=== PATIENT | male | born 1950 | race Caucasian/White ===

== ENCOUNTER 2022-12-05 11:43 | Inpatient (IN) | payer MEDICAID ==
[~2022-12-05] VITALS: Ht 167.6 cm; Wt 77.6 kg
[2022-12-05 12:24] LABS: APPEARANCE,URINE CLEAR (CLEAR); BILIRUBIN,URINE NEGATIVE (NEGATIVE); BLOOD, URINE TRACE-INTA Ery/uL (NEGATIVE); COLOR,URINE YELLOW (YELLOW); KETONES,URINE NEGATIVE (NEGATIVE); LEUKOCYTE ESTERASE ,URINE NEGATIVE (NEGATIVE); NITRITE, URINE NEGATIVE (NEGATIVE); PH,URINE 7.5 (5.0-8.0); PROTEIN,URINE 3+ mg/dl (NEGATIVE); UGLUCOSE NEGATIVE (NEGATIVE); UROBILINOGEN,URINE 0.2 EU/dL (0.2)
[2022-12-05 12:26] LABS: BASOPHILS % (AUTO) 0.7 % (0.0-2.0); EOSINOPHILS % (AUTO) 0.4 % (0.0-6.0); HEMATOCRIT 32 % (39-51); HEMOGLOBIN 10.3 g/dL (13.5-17.5); LYMPHOCYTES # (AUTO) 0.3 K/uL (0.8-4.8); LYMPHOCYTES % (AUTO) 10.3 % (20.0-44.0); MEAN CORPUSCULAR HEMOGLOBIN 23 PG (26.0-33.0); MEAN CORPUSCULAR HGB CONC 32 g/dl (31.0-36.0); MEAN CORPUSCULAR VOLUME 71 fL (80-96); MONOCYTES # (AUTO) 0.7 K/uL (0.1-1.30); MONOCYTES % (AUTO) 26.6 % (2.0-12.0); NEUTROPHILS # (AUTO) 1.5 K/uL (1.8-8.9); RED BLOOD CELL COUNT(AUTO) 4.52 MIL/uL (4.5-6.0); RED CELL DISTRIBUTION WIDTH 15.4 % (11.5-15.0); WHITE BLOOD COUNT (AUTO) 2.5 K/uL (4.3-11.0)
[2022-12-05 12:50] LABS: CALCIUM, SERUM 8.7 mg/dL (8.5-10.1); CARBON DIOXIDE 27 mmol/L (21-32); CHLORIDE 102 mmol/L (98-107); CREATININE 1.8 mg/dL (0.6-1.3); GLUCOSE 152 mg/dL (74-106); SODIUM SERUM 139 mmol/L (136-145); UREA NITROGEN, BLOOD 21 mg/dL (7-18)
[2022-12-05 12:53] LABS: POTASSIUM 2.6 mmol/L (3.5-5.1)
[2022-12-05 12:54] LABS: LACTIC ACID 0.7 mmol/L (0.4-2.0)
[2022-12-05 12:57] LABS: ALANINE AMINOTRANSFERASE 17 U/L (12-78); ALBUMIN 3.5 g/dL (3.4-5.0); ALKALINE PHOSPHATASE 51 U/L (46-116); ASPARTATE AMINOTRANSFERASE 14 U/L (15-37); BILIRUBIN,DIRECT 0.2 mg/dL (0.0-0.2); BILIRUBIN,TOTAL 1.2 mg/dL (0.2-1.0); TOTAL PROTEIN, SERUM 7.3 g/dL (6.4-8.2)
[2022-12-05 13:03] LABS: ADD URINE CULTURE NO; BACTERIA,URINE Few /HPF (None Seen); RBC,URINE 0-2 /HPF (0-2); SQUAMOUS EPITHELIAL CELL,UR Rare /HPF (None Seen); WBC,URINE 0-2 /HPF (0-3)
[2022-12-05 13:10] LABS: PLATELET COUNT (AUTO) 43 K/uL (150-450)
[2022-12-05] MEDS ORDERED: POTASSIUM CHLORIDE 20 MEQ TAB.PRT.SR PO ONE ×2 (13:24→13:30)
[2022-12-05] MEDS ORDERED: POTASSIUM CL. PREMIX PERIPHER. 200 ML ONE (13:24)
[2022-12-05] MEDS ORDERED: TAMS-12 PO (13:31)
[2022-12-05] MEDS ORDERED: ERGO500040 PO (13:31)
[2022-12-05] MEDS ORDERED: HYDR-4075 PO (13:31)
[2022-12-05] MEDS ORDERED: FERR325T23 PO (13:31)
[2022-12-05] MEDS ORDERED: POTA10CA43 PO (13:31)
[2022-12-05] MEDS: POTASSIUM CL. PREMIX PERIPHER. 50 ML IV SCH ×4 (13:45→17:06)
[2022-12-05] MEDS ORDERED: ACETAMINOPHEN 325 MG TABLET PO PRN (14:00)
[2022-12-05] MEDS ORDERED: ONDANSETRON HCL/PF 4 MG/2 ML VIAL IVP PRN (14:00)
[2022-12-05] MEDS ORDERED: MAG HYDROX/AL HYDROX/SIMETH 30 ML UDC PO PRN (14:00)
[2022-12-05 14:13] LABS: BAND % (MANUAL) 1 % (0.0-5.0); EOSINOPHILS % (MANUAL) 3 % (0-4); LYMPHOCYTES % (MANUAL) 10 % (16-48); MONOCYTES % (MANUAL) 27 % (0-11.0); NEUTROPHILS % (MANUAL) 59 (42-76); PLATELET ESTIMATE DECREASED
[2022-12-05 14:14] LABS: ANISOCYTOSIS 1+
[2022-12-05 14:15] LABS: OVALOCYTES 1+
[2022-12-05 15:05] LABS: MAGNESIUM 1.9 mg/dL (1.8-2.4); PHOSPHORUS 2.4 mg/dL (2.5-4.9)
[2022-12-05] MEDS: IV NS 0.9% 1,000 ML IV PRN (15:28)
[2022-12-06] VITALS: BP 158/97; TEMP 102.6; O2SAT 94
[2022-12-06] MEDS: IV NS 0.9% 1,000 ML IV PRN (07:03)
[2022-12-06 07:44] LABS: BASOPHILS % (AUTO) 0.7 % (0.0-2.0); EOSINOPHILS % (AUTO) 0.2 % (0.0-6.0); HEMATOCRIT 32 % (39-51); LYMPHOCYTES # (AUTO) 0.6 K/uL (0.8-4.8); LYMPHOCYTES % (AUTO) 29.5 % (20.0-44.0); MEAN CORPUSCULAR HEMOGLOBIN 23 PG (26.0-33.0); MEAN CORPUSCULAR HGB CONC 32 g/dl (31.0-36.0); MEAN CORPUSCULAR VOLUME 72 fL (80-96); MONOCYTES # (AUTO) 0.9 K/uL (0.1-1.30); MONOCYTES % (AUTO) 40.7 % (2.0-12.0); NEUTROPHILS # (AUTO) 0.6 K/uL (1.8-8.9); NEUTROPHILS % (AUTO) 28.9 % (43.0-81.0); RED BLOOD CELL COUNT(AUTO) 4.38 MIL/uL (4.5-6.0); RED CELL DISTRIBUTION WIDTH 15.7 % (11.5-15.0); WHITE BLOOD COUNT (AUTO) 2.2 K/uL (4.3-11.0)
[2022-12-06 07:56] LABS: PLATELET COUNT (AUTO) 34 K/uL (150-450)
[2022-12-06 08:00] VITALS: BP 163/78; TEMP 98.8; O2SAT 97
[2022-12-06 08:03] LABS: CALCIUM, SERUM 7.9 mg/dL (8.5-10.1); PHOSPHORUS 3.5 mg/dL (2.5-4.9)
[2022-12-06] MEDS ORDERED: ERGOCALCIFEROL (VITAMIN D 2) 50,000 UNIT CAPSULE PO SCH (10:30)
[2022-12-06 10:51] LABS: ANISOCYTOSIS 1+; BAND % (MANUAL) 1 % (0.0-5.0); LYMPHOCYTES % (MANUAL) 33 % (16-48); MONOCYTES % (MANUAL) 39 % (0-11.0); NEUTROPHILS % (MANUAL) 27 (42-76); PLATELET ESTIMATE DECREASED
[2022-12-06 10:52] LABS: OVALOCYTES 1+
[2022-12-06] MEDS: TAMSULOSIN 0.4 MG CAP.SR.24H PO SCH (10:56)
[2022-12-06] MEDS: FERROUS SULFATE (325 MG) 325 MG/TAB TABLET PO SCH ×2 (10:57→16:02)
[2022-12-06] MEDS: POTASSIUM CHLORIDE 20 MEQ TAB.PRT.SR PO SCH ×2 (10:57→12:13)
[2022-12-06] MEDS: hydrALAZINE HCL 10 MG TABLET PO SCH (10:57)
[2022-12-06] MEDS ORDERED: POTASSIUM CHLORIDE 20 MEQ TAB.PRT.SR PO SCH (12:30)
[2022-12-06 20:00] VITALS: BP 170/94; TEMP 98.2; O2SAT 96
[2022-12-07] VITALS: BP 169/98; TEMP 99; O2SAT 94
[2022-12-07] MEDS: CLONIDINE HCL 0.1 MG TABLET PO PRN ×2 (00:28→23:54)
[2022-12-07] MEDS: IV NS 0.9% 1,000 ML IV PRN (03:19)
[2022-12-07 04:00] VITALS: BP 159/93; TEMP 98.2; O2SAT 96
[2022-12-07 06:11] LABS: BASOPHILS % (AUTO) 0.8 % (0.0-2.0); EOSINOPHILS % (AUTO) 0.8 % (0.0-6.0); HEMATOCRIT 30 % (39-51); HEMOGLOBIN 9.8 g/dL (13.5-17.5); LYMPHOCYTES % (AUTO) 36.2 % (20.0-44.0); MEAN CORPUSCULAR HEMOGLOBIN 23 PG (26.0-33.0); MEAN CORPUSCULAR HGB CONC 33 g/dl (31.0-36.0); MEAN CORPUSCULAR VOLUME 71 fL (80-96); MONOCYTES # (AUTO) 0.9 K/uL (0.1-1.30); MONOCYTES % (AUTO) 32.6 % (2.0-12.0); NEUTROPHILS # (AUTO) 0.8 K/uL (1.8-8.9); NEUTROPHILS % (AUTO) 29.6 % (43.0-81.0); RED BLOOD CELL COUNT(AUTO) 4.28 MIL/uL (4.5-6.0); RED CELL DISTRIBUTION WIDTH 15.8 % (11.5-15.0); WHITE BLOOD COUNT (AUTO) 2.8 K/uL (4.3-11.0)
[2022-12-07 06:19] LABS: CALCIUM, SERUM 8.2 mg/dL (8.5-10.1); CREATININE 1.8 mg/dL (0.6-1.3); PHOSPHORUS 2.9 mg/dL (2.5-4.9); POTASSIUM 2.9 mmol/L (3.5-5.1)
[2022-12-07 06:28] LABS: PLATELET COUNT (AUTO) 30 K/uL (150-450)
[2022-12-07 08:00] VITALS: BP 165/95; TEMP 97.9; O2SAT 95
[2022-12-07] MEDS: TAMSULOSIN 0.4 MG CAP.SR.24H PO SCH (08:58)
[2022-12-07] MEDS: FERROUS SULFATE (325 MG) 325 MG/TAB TABLET PO SCH ×2 (08:58→17:12)
[2022-12-07] MEDS: hydrALAZINE HCL 10 MG TABLET PO SCH (08:58)
[2022-12-07] MEDS: AMLODIPINE BESYLATE 5 MG TABLET PO SCH (08:59)
[2022-12-07] MEDS: POTASSIUM CHLORIDE 20 MEQ TAB.PRT.SR PO SCH ×2 (10:43→11:30)
[2022-12-07 11:40] LABS: APPEARANCE,URINE CLEAR (CLEAR); BILIRUBIN,URINE NEGATIVE (NEGATIVE); BLOOD, URINE TRACE-INTA Ery/uL (NEGATIVE); COLOR,URINE YELLOW (YELLOW); KETONES,URINE NEGATIVE (NEGATIVE); LEUKOCYTE ESTERASE ,URINE NEGATIVE (NEGATIVE); NITRITE, URINE NEGATIVE (NEGATIVE); PROTEIN,URINE 3+ mg/dl (NEGATIVE); UGLUCOSE NEGATIVE (NEGATIVE); UROBILINOGEN,URINE 0.2 EU/dL (0.2)
[2022-12-07 11:49] LABS: ADD URINE CULTURE NO; RBC,URINE 0-2 /HPF (0-2); SQUAMOUS EPITHELIAL CELL,UR Rare /HPF (None Seen)
[2022-12-07 11:50] LABS: BACTERIA,URINE Rare /HPF (None Seen); WBC,URINE 0-2 /HPF (0-3)
[2022-12-07 12:00] VITALS: BP 133/74; TEMP 97.7; O2SAT 95
[2022-12-07] MEDS ORDERED: POTASSIUM CHLORIDE 20 MEQ TAB.PRT.SR PO SCH (12:00)
[2022-12-07 12:05] LABS: URINE TOTAL PROTEIN 301.7 mg/dL (0-11.9)
[2022-12-07 13:40] LABS: EOSINOPHIL,URINE None Seen
[2022-12-07 13:49] LABS: LYMPHOCYTES % (MANUAL) 42 % (16-48); MONOCYTES % (MANUAL) 30 % (0-11.0); NEUTROPHILS % (MANUAL) 28 (42-76); PLATELET ESTIMATE DECREASED
[2022-12-07 13:50] LABS: ANISOCYTOSIS 1+; HYPOCHROMASIA 1+
[2022-12-07] MEDS ORDERED: TBO-FILGRASTIM 480 MCG/0.8 ML ML SQ SCH (15:30)
[2022-12-07 16:00] VITALS: BP 156/86; TEMP 98.2; O2SAT 97
[2022-12-07 16:27] LABS: THYROID STIMULATING HORMONE 4.552 uIU/mL (0.358-3.74)
[2022-12-07 16:38] LABS: FIBRINOGEN ACTIVITY 423 Mg/dL (213-485); INR 0.96 (0.91-1.10); PARTIAL THROMBOPLASTIN TIME 31.7 SEC (24.3-34.3); PROTHROMBIN TIME 10.2 SECS (9.2-11.1)
[2022-12-07 17:02] LABS: D-DIMER < 0.19 mg/L(FEU (0.17-0.50)
[2022-12-07 17:31] LABS: RHEUMATOID FACTOR SCREEN NEGATIVE (NEGATIVE)
[2022-12-07 20:00] VITALS: BP 164/93; TEMP 98.6; O2SAT 97
[2022-12-08] VITALS: BP 162/88; TEMP 98.6; O2SAT 97
[2022-12-08 04:00] VITALS: BP 162/97; TEMP 97.3; O2SAT 97
[2022-12-08] MEDS: CLONIDINE HCL 0.1 MG TABLET PO PRN (06:54)
[2022-12-08 07:24] LABS: BASOPHILS # (AUTO) 0.1 K/uL (0.0-0.2); BASOPHILS % (AUTO) 0.4 % (0.0-2.0); EOSINOPHILS # (AUTO) 0.1 K/uL (0.0-0.7); EOSINOPHILS % (AUTO) 0.4 % (0.0-6.0); HEMATOCRIT 30 % (39-51); HEMOGLOBIN 9.5 g/dL (13.5-17.5); LYMPHOCYTES # (AUTO) 1.4 K/uL (0.8-4.8); MEAN CORPUSCULAR HEMOGLOBIN 23 PG (26.0-33.0); MEAN CORPUSCULAR HGB CONC 31 g/dl (31.0-36.0); MEAN CORPUSCULAR VOLUME 72 fL (80-96); MONOCYTES # (AUTO) 1.3 K/uL (0.1-1.30); MONOCYTES % (AUTO) 8.6 % (2.0-12.0); NEUTROPHILS # (AUTO) 12.3 K/uL (1.8-8.9); NEUTROPHILS % (AUTO) 81.6 % (43.0-81.0); RED BLOOD CELL COUNT(AUTO) 4.22 MIL/uL (4.5-6.0); RED CELL DISTRIBUTION WIDTH 16.1 % (11.5-15.0); WHITE BLOOD COUNT (AUTO) 15.1 K/uL (4.3-11.0)
[2022-12-08 07:34] LABS: ALBUMIN 2.8 g/dL (3.4-5.0); BILIRUBIN,TOTAL 0.7 mg/dL (0.2-1.0); CALCIUM, SERUM 8.5 mg/dL (8.5-10.1); CREATININE 1.9 mg/dL (0.6-1.3); MAGNESIUM 2.2 mg/dL (1.8-2.4); PHOSPHORUS 3.7 mg/dL (2.5-4.9); TOTAL PROTEIN, SERUM 6.2 g/dL (6.4-8.2)
[2022-12-08 07:35] LABS: PLATELET COUNT (AUTO) 38 K/uL (150-450)
[2022-12-08 07:38] LABS: D-DIMER 0.19 mg/L(FEU (0.17-0.50); INR 0.98 (0.91-1.10); PARTIAL THROMBOPLASTIN TIME 30.1 SEC (24.3-34.3); PROTHROMBIN TIME 10.4 SECS (9.2-11.1)
[2022-12-08 08:00] VITALS: BP 134/81; TEMP 98.2; O2SAT 97
[2022-12-08 08:06] LABS: FREE KAPPA LT CHAINS SERUM 103.3 mg/L (3.3-19.4); FREE LAMBDA LT CHAIN SERUM 63.3 mg/L (5.7-26.3); IMMUNOGLOBULIN A, SERUM 230 mg/dL (61-437); IMMUNOGLOBULIN G, SERUM 1079 mg/dL (603-1613); IMMUNOGLOBULIN M, SERUM 71 mg/dL (20-172); KAPPA/LAMBDA RATIO SERUM 1.63 (0.26-1.65)
[2022-12-08] MEDS: FERROUS SULFATE (325 MG) 325 MG/TAB TABLET PO SCH ×2 (08:47→16:12)
[2022-12-08] MEDS: TAMSULOSIN 0.4 MG CAP.SR.24H PO SCH (08:47)
[2022-12-08] MEDS: AMLODIPINE BESYLATE 5 MG TABLET PO SCH (08:47)
[2022-12-08] MEDS: hydrALAZINE HCL 10 MG TABLET PO SCH (08:47)
[2022-12-08 09:07] LABS: *ANA ANTI-CENTROMERE B AB <0.2 AI (0.0-0.9); *ANA ANTI-DNA(DS) AB, QN 24 IU/mL (0-9); *ANA ANTI-JO-1 <0.2 AI (0.0-0.9); *ANA ANTICHROMATIN ANTIBODY <0.2 AI (0.0-0.9); *ANA RNP ANTIBODIES <0.2 AI (0.0-0.9); *ANA SJOGREN'S ANTI-SS-A <0.2 AI (0.0-0.9); *ANA SJOGREN'S ANTI-SS-B <0.2 AI (0.0-0.9); *ANAANTI-SCLERODERMA-70 AB <0.2 AI (0.0-0.9); *ANASMITH AB <0.2 AI (0.0-0.9); FOLIC ACID 15.9 ng/mL (>3.0)
[2022-12-08 10:52] LABS: BAND % (MANUAL) 7 % (0.0-5.0); EOSINOPHILS % (MANUAL) 1 % (0-4); LYMPHOCYTES % (MANUAL) 11 % (16-48); MONOCYTES % (MANUAL) 6 % (0-11.0); NEUTROPHILS % (MANUAL) 75 (42-76); PLATELET ESTIMATE DECREASED
[2022-12-08 10:53] LABS: ANISOCYTOSIS 1+
[2022-12-08 12:00] VITALS: BP 158/91; TEMP 98.4; O2SAT 94
[2022-12-08] MEDS ORDERED: POTASSIUM CHLORIDE 20 MEQ TAB.PRT.SR PO SCH (12:00)
[2022-12-08 13:07] LABS: HEPATITIS B SURFACE AB Non Reactive (.)
[2022-12-08 15:07] LABS: *SPE ALBUMIN 3.3 g/dL (2.9-4.4); *SPE ALPHA-1-GLOBULIN 0.3 g/dL (0.0-0.4); *SPE ALPHA-2-GLOBULIN 0.9 g/dL (0.4-1.0); *SPE BETA GLOBULIN 1.1 g/dL (0.7-1.3); *SPE GLOBULIN, TOTAL 3.3 g/dL (2.2-3.9); *SPE M-SPIKE Not Observed g/dL (Not Observed); *SPE PROTEIN TOTAL 6.6 g/dL (6.0-8.5); *SPEGAMMA GLOBULIN 1.1 g/dL (0.4-1.8)
[2022-12-08 16:00] VITALS: BP 144/83; TEMP 98.4; O2SAT 94
[2022-12-08 20:00] VITALS: BP 151/80; TEMP 98.4; O2SAT 96
[2022-12-09] VITALS: BP 161/101; TEMP 99.3; O2SAT 96
[2022-12-09] MEDS: CLONIDINE HCL 0.1 MG TABLET PO PRN (01:16)
[2022-12-09 04:00] VITALS: BP 148/82; TEMP 96.3; O2SAT 97
[2022-12-09 06:46] LABS: BASOPHILS % (AUTO) 0.3 % (0.0-2.0); EOSINOPHILS # (AUTO) 0.1 K/uL (0.0-0.7); EOSINOPHILS % (AUTO) 0.5 % (0.0-6.0); HEMATOCRIT 30 % (39-51); HEMOGLOBIN 9.4 g/dL (13.5-17.5); LYMPHOCYTES # (AUTO) 1.6 K/uL (0.8-4.8); LYMPHOCYTES % (AUTO) 12.2 % (20.0-44.0); MEAN CORPUSCULAR HEMOGLOBIN 23 PG (26.0-33.0); MEAN CORPUSCULAR HGB CONC 31 g/dl (31.0-36.0); MEAN CORPUSCULAR VOLUME 72 fL (80-96); MONOCYTES # (AUTO) 0.7 K/uL (0.1-1.30); MONOCYTES % (AUTO) 5.4 % (2.0-12.0); NEUTROPHILS # (AUTO) 10.7 K/uL (1.8-8.9); NEUTROPHILS % (AUTO) 81.6 % (43.0-81.0); RED BLOOD CELL COUNT(AUTO) 4.16 MIL/uL (4.5-6.0); WHITE BLOOD COUNT (AUTO) 13.1 K/uL (4.3-11.0)
[2022-12-09 07:01] LABS: PLATELET COUNT (AUTO) 40 K/uL (150-450)
[2022-12-09 07:42] LABS: CALCIUM, SERUM 8.2 mg/dL (8.5-10.1); CREATININE 1.9 mg/dL (0.6-1.3); POTASSIUM 3.2 mmol/L (3.5-5.1)
[2022-12-09 08:00] VITALS: BP 166/85; TEMP 98.2; O2SAT 96
[2022-12-09 08:35] LABS: ANISOCYTOSIS 1+; LYMPHOCYTES % (MANUAL) 15 % (16-48); MONOCYTES % (MANUAL) 4 % (0-11.0); NEUTROPHILS % (MANUAL) 81 (42-76); PLATELET ESTIMATE DECREASED
[2022-12-09] MEDS ORDERED: POTASSIUM CHLORIDE 20 MEQ TAB.PRT.SR PO ONE (09:00)
[2022-12-09] MEDS: TAMSULOSIN 0.4 MG CAP.SR.24H PO SCH (09:08)
[2022-12-09] MEDS: hydrALAZINE HCL 10 MG TABLET PO SCH (09:08)
[2022-12-09] MEDS: AMLODIPINE BESYLATE 5 MG TABLET PO SCH (09:08)
[2022-12-09] MEDS: FERROUS SULFATE (325 MG) 325 MG/TAB TABLET PO SCH ×2 (09:09→17:28)
[2022-12-09 11:07] LABS: *SPE ALBUMIN 2.9 g/dL (2.9-4.4); *SPE ALPHA-1-GLOBULIN 0.2 g/dL (0.0-0.4); *SPE ALPHA-2-GLOBULIN 0.8 g/dL (0.4-1.0); *SPE BETA GLOBULIN 0.9 g/dL (0.7-1.3); *SPE GLOBULIN, TOTAL 2.8 g/dL (2.2-3.9); *SPE M-SPIKE Not Observed g/dL (Not Observed); *SPE PROTEIN TOTAL 5.7 g/dL (6.0-8.5); *SPEGAMMA GLOBULIN 0.9 g/dL (0.4-1.8)
[2022-12-09 12:00] VITALS: BP 160/79; TEMP 98.1; O2SAT 97
[2022-12-09 12:55] LABS: FREE PSA 3.34 ng/mL (0.00-45); PROSTATE SPECIFIC ANTIGEN SCR 7.07 ng/mL (0.00-4.00)
[2022-12-09 16:00] VITALS: BP 158/92; TEMP 98.6; O2SAT 96
[2022-12-09 20:00] VITALS: BP 155/90; TEMP 98.8; O2SAT 95
[2022-12-09 21:06] LABS: PTH, INTACT 29 pg/mL (15-65)
[2022-12-10] VITALS (7 sets, daily range): BP systolic 147–179; BP diastolic 84–96; TEMP 98.6–99.3; O2SAT 93–97
[2022-12-10] MEDS: CLONIDINE HCL 0.1 MG TABLET PO PRN ×2 (04:43→23:56)
[2022-12-10 06:58] LABS: BASOPHILS % (AUTO) 0.3 % (0.0-2.0); EOSINOPHILS % (AUTO) 0.4 % (0.0-6.0); HEMATOCRIT 29 % (39-51); HEMOGLOBIN 9.2 g/dL (13.5-17.5); LYMPHOCYTES # (AUTO) 1.5 K/uL (0.8-4.8); LYMPHOCYTES % (AUTO) 15.2 % (20.0-44.0); MEAN CORPUSCULAR HEMOGLOBIN 23 PG (26.0-33.0); MEAN CORPUSCULAR HGB CONC 32 g/dl (31.0-36.0); MEAN CORPUSCULAR VOLUME 73 fL (80-96); MONOCYTES # (AUTO) 0.9 K/uL (0.1-1.30); MONOCYTES % (AUTO) 9.2 % (2.0-12.0); NEUTROPHILS # (AUTO) 7.5 K/uL (1.8-8.9); NEUTROPHILS % (AUTO) 74.9 % (43.0-81.0); RED BLOOD CELL COUNT(AUTO) 4.01 MIL/uL (4.5-6.0); RED CELL DISTRIBUTION WIDTH 16.2 % (11.5-15.0); WHITE BLOOD COUNT (AUTO) 10.1 K/uL (4.3-11.0)
[2022-12-10 07:26] LABS: PLATELET COUNT (AUTO) 40 K/uL (150-450)
[2022-12-10] MEDS: AMLODIPINE BESYLATE 5 MG TABLET PO SCH (08:24)
[2022-12-10] MEDS: TAMSULOSIN 0.4 MG CAP.SR.24H PO SCH (08:24)
[2022-12-10] MEDS: FERROUS SULFATE (325 MG) 325 MG/TAB TABLET PO SCH ×2 (08:24→16:46)
[2022-12-10] MEDS: hydrALAZINE HCL 10 MG TABLET PO SCH (08:25)
[2022-12-10 10:14] LABS: LYMPHOCYTES % (MANUAL) 15 % (16-48); MONOCYTES % (MANUAL) 4 % (0-11.0); NEUTROPHILS % (MANUAL) 81 (42-76)
[2022-12-10 10:15] LABS: ANISOCYTOSIS 1+; PLATELET ESTIMATE DECREASED
[2022-12-11] VITALS: BP 162/81; TEMP 99.1; O2SAT 94
[2022-12-11 04:00] VITALS: BP 152/85; TEMP 99.1; O2SAT 94
[2022-12-11 06:43] LABS: BASOPHILS # (AUTO) 0.1 K/uL (0.0-0.2); BASOPHILS % (AUTO) 1.5 % (0.0-2.0); EOSINOPHILS % (AUTO) 0.3 % (0.0-6.0); HEMATOCRIT 28 % (39-51); HEMOGLOBIN 9.2 g/dL (13.5-17.5); LYMPHOCYTES # (AUTO) 1.4 K/uL (0.8-4.8); LYMPHOCYTES % (AUTO) 20.8 % (20.0-44.0); MEAN CORPUSCULAR HEMOGLOBIN 24 PG (26.0-33.0); MEAN CORPUSCULAR HGB CONC 33 g/dl (31.0-36.0); MEAN CORPUSCULAR VOLUME 72 fL (80-96); MONOCYTES # (AUTO) 0.8 K/uL (0.1-1.30); NEUTROPHILS # (AUTO) 4.6 K/uL (1.8-8.9); NEUTROPHILS % (AUTO) 66.4 % (43.0-81.0); RED BLOOD CELL COUNT(AUTO) 3.89 MIL/uL (4.5-6.0); RED CELL DISTRIBUTION WIDTH 16.3 % (11.5-15.0); WHITE BLOOD COUNT (AUTO) 6.9 K/uL (4.3-11.0)
[2022-12-11 07:00] LABS: CALCIUM, SERUM 8.1 mg/dL (8.5-10.1); POTASSIUM 2.9 mmol/L (3.5-5.1)
[2022-12-11 07:25] LABS: PLATELET COUNT (AUTO) 47 K/uL (150-450)
[2022-12-11 08:00] VITALS: BP 155/85; TEMP 99.7; O2SAT 96
[2022-12-11] MEDS ORDERED: POTASSIUM CHLORIDE 20 MEQ TAB.PRT.SR PO ONE (08:30)
[2022-12-11] MEDS: FERROUS SULFATE (325 MG) 325 MG/TAB TABLET PO SCH ×2 (09:13→16:39)
[2022-12-11] MEDS: TAMSULOSIN 0.4 MG CAP.SR.24H PO SCH (09:14)
[2022-12-11] MEDS: hydrALAZINE HCL 10 MG TABLET PO SCH (09:14)
[2022-12-11] MEDS: AMLODIPINE BESYLATE 5 MG TABLET PO SCH (09:15)
[2022-12-11 12:00] VITALS: BP 155/85; TEMP 98.7; O2SAT 96
[2022-12-11 16:00] VITALS: BP 168/93; TEMP 98.4; O2SAT 98
[2022-12-11] MEDS: CLONIDINE HCL 0.1 MG TABLET PO PRN (16:39)
[2022-12-11 18:34] LABS: BAND % (MANUAL) 1 % (0.0-5.0); LYMPHOCYTES % (MANUAL) 15 % (16-48); MONOCYTES % (MANUAL) 11 % (0-11.0); NEUTROPHILS % (MANUAL) 73 (42-76); PLATELET ESTIMATE DECREASED
[2022-12-11 20:41] VITALS: BP 150/91; TEMP 99.3; O2SAT 98
[2022-12-12 00:54] VITALS: BP 146/88; TEMP 98.6; O2SAT 96
[2022-12-12 06:15] VITALS: BP 160/89; TEMP 97.9; O2SAT 96
[2022-12-12 07:28] LABS: BASOPHILS % (AUTO) 0.4 % (0.0-2.0); EOSINOPHILS % (AUTO) 0.7 % (0.0-6.0); HEMATOCRIT 28 % (39-51); LYMPHOCYTES # (AUTO) 1.4 K/uL (0.8-4.8); LYMPHOCYTES % (AUTO) 23.7 % (20.0-44.0); MEAN CORPUSCULAR HEMOGLOBIN 23 PG (26.0-33.0); MEAN CORPUSCULAR HGB CONC 33 g/dl (31.0-36.0); MEAN CORPUSCULAR VOLUME 72 fL (80-96); MONOCYTES # (AUTO) 0.9 K/uL (0.1-1.30); MONOCYTES % (AUTO) 15.5 % (2.0-12.0); NEUTROPHILS # (AUTO) 3.4 K/uL (1.8-8.9); NEUTROPHILS % (AUTO) 59.7 % (43.0-81.0); PLATELET COUNT (AUTO) 51 K/uL (150-450); RED BLOOD CELL COUNT(AUTO) 3.86 MIL/uL (4.5-6.0); RED CELL DISTRIBUTION WIDTH 16.2 % (11.5-15.0); WHITE BLOOD COUNT (AUTO) 5.7 K/uL (4.3-11.0)
[2022-12-12 07:37] LABS: CREATININE 1.9 mg/dL (0.6-1.3); POTASSIUM 3.1 mmol/L (3.5-5.1)
[2022-12-12 08:05] VITALS: BP 147/72; TEMP 98.6; O2SAT 97
[2022-12-12] MEDS: TAMSULOSIN 0.4 MG CAP.SR.24H PO SCH (08:09)
[2022-12-12] MEDS: FERROUS SULFATE (325 MG) 325 MG/TAB TABLET PO SCH ×2 (08:09→16:23)
[2022-12-12] MEDS: AMLODIPINE BESYLATE 5 MG TABLET PO SCH (08:10)
[2022-12-12] MEDS: hydrALAZINE HCL 10 MG TABLET PO SCH (08:11)
[2022-12-12] MEDS ORDERED: LISINOPRIL (10MG) 10 MG TABLET PO SCH (09:00)
[2022-12-12] MEDS ORDERED: POTASSIUM CHLORIDE 20 MEQ TAB.PRT.SR PO ONE (10:00)
[2022-12-12 10:24] LABS: ANISOCYTOSIS 1+; BAND % (MANUAL) 2 % (0.0-5.0); LYMPHOCYTES % (MANUAL) 25 % (16-48); MONOCYTES % (MANUAL) 16 % (0-11.0); NEUTROPHILS % (MANUAL) 57 (42-76); PLATELET ESTIMATE DECREASED
[2022-12-12 12:00] VITALS: BP 162/80; TEMP 98.4; O2SAT 97
[2022-12-12] MEDS ORDERED: HEPARIN SODIUM, PORCINE 5000 UNITS/1 ML VIAL SQ SCH (12:00)
[2022-12-12] MEDS ORDERED: LISI10TA29 PO ×2 (14:44→18:12)
[2022-12-12] MEDS ORDERED: APIX2.5T PO ×2 (14:44→18:12)
[2022-12-12] MEDS ORDERED: HYDR-4075 PO ×2 (14:44→18:12)
[2022-12-12] MEDS ORDERED: AMLO-212 PO (14:44)
[2022-12-12 15:00] LABS: BASOPHILS # (AUTO) 0.1 K/uL (0.0-0.2); EOSINOPHILS % (AUTO) 0.8 % (0.0-6.0); HEMATOCRIT 30 % (39-51); HEMOGLOBIN 9.7 g/dL (13.5-17.5); LYMPHOCYTES # (AUTO) 1.1 K/uL (0.8-4.8); LYMPHOCYTES % (AUTO) 19.9 % (20.0-44.0); MEAN CORPUSCULAR HEMOGLOBIN 23 PG (26.0-33.0); MEAN CORPUSCULAR HGB CONC 32 g/dl (31.0-36.0); MEAN CORPUSCULAR VOLUME 72 fL (80-96); MONOCYTES # (AUTO) 0.7 K/uL (0.1-1.30); MONOCYTES % (AUTO) 11.9 % (2.0-12.0); NEUTROPHILS # (AUTO) 3.8 K/uL (1.8-8.9); NEUTROPHILS % (AUTO) 66.4 % (43.0-81.0); PLATELET COUNT (AUTO) 64 K/uL (150-450); RED BLOOD CELL COUNT(AUTO) 4.17 MIL/uL (4.5-6.0); RED CELL DISTRIBUTION WIDTH 16.5 % (11.5-15.0); WHITE BLOOD COUNT (AUTO) 5.7 K/uL (4.3-11.0)
[2022-12-12 16:00] VITALS: BP 162/80; TEMP 98.4; O2SAT 97
[2022-12-12] MEDS ORDERED: AMLO-213 PO (18:12)
[2022-12-14] MEDS ORDERED: ERGOCALCIFEROL (VITAMIN D 2) 50,000 UNIT CAPSULE PO SCH (12:00)
== END 2022-12-12 18:19 | disposition home or self-care (01) | DRG 137 ==
LOC: ER 11:43 → TELE 14:28 → TELE1 16:37
PROVIDERS: ADMIT Nurse Practitioner Acute Care; ATTEND Nurse Practitioner Family
DX: U07.1 COVID-19 (principal); N17.0 Acute kidney failure with tubular necrosis; D61.818 Other pancytopenia; I82.622 Acute embolism and thrombosis of deep veins of left upper extremity; D69.6 Thrombocytopenia, unspecified; E86.0 Dehydration; E87.6 Hypokalemia; Z86.73 Personal history of transient ischemic attack (TIA), and cerebral infarction without residual deficits; R53.1 Weakness; D72.821 Monocytosis (symptomatic); D50.9 Iron deficiency anemia, unspecified; N40.0 Benign prostatic hyperplasia without lower urinary tract symptoms; N18.9 Chronic kidney disease, unspecified; D72.819 Decreased white blood cell count, unspecified; R16.1 Splenomegaly, not elsewhere classified; I12.9 Hypertensive chronic kidney disease with stage 1 through stage 4 chronic kidney disease, or unspecified chronic kidney disease
CPT/HCPCS: 36415; 71045-TC; 76700-TC; 76770-TC; 80048-TC; 80053-TC; 80061-TC; 80076-TC; 81001; 82272-TC; 82378; 82550-TC; 82570-TC; 82607-TC; 82728-TC; 82784; 82962-TC; 83540-TC; 83605-TC; 83735-TC; 83880; 83970; 84100-TC; 84153-TC; 84154-TC; 84155; 84165; 84300-TC; 84439-TC; 84443-TC; 84484-TC; 85025-TC; 85378-TC; 85396; 86140-TC; 86225; 86235; 86334; 86431-TC; 86706; 86803; 87040-TC; 87086-TC; 87340; 93971-TC; 97110-TC; 97116-TC; A4223; G0378; J1447; J1644; J3480; J7030